=== PATIENT | female | born 1965 | race Caucasian/White ===

== ENCOUNTER → 2016-08-13 | Outpatient (CLI) | payer OTHER | LOC: HEART 5 08:44 | DX: R06.00 Dyspnea, unspecified (principal); R07.89 Other chest pain ==

== ENCOUNTER → 2016-08-16 | Outpatient (CLI) | payer OTHER | LOC: EMI 09:00 | DX: G35 Multiple sclerosis (principal) | CPT/HCPCS: 72156; A9577; J7050 ==

== ENCOUNTER → 2016-09-24 | Outpatient (CLI) | payer OTHER | LOC: KOH-I 10:55 | DX: R10.12 Left upper quadrant pain (principal); N20.0 Calculus of kidney | CPT/HCPCS: 74020 ==

== ENCOUNTER → 2020-05-16 | Outpatient (CLI) | payer OTHER | LOC: KOH-I 15:34 | DX: M25.551 Pain in right hip (principal); M16.11 Unilateral primary osteoarthritis, right hip | CPT/HCPCS: 73502 ==

== ENCOUNTER → 2020-06-14 | Outpatient (CLI) | payer OTHER | LOC: KOH-I 14:54 | DX: R31.9 Hematuria, unspecified (principal) | CPT/HCPCS: 74018 ==

== ENCOUNTER → 2020-07-25 | Outpatient (CLI) | payer OTHER | LOC: KOH-I 10:16 | DX: M54.2 Cervicalgia (principal) | CPT/HCPCS: 72040 ==

== ENCOUNTER → 2020-08-03 | Outpatient (CLI) | payer OTHER | LOC: EMI 12:53 | DX: M54.2 Cervicalgia (principal); M50.823 Other cervical disc disorders at C6-C7 level; M48.02 Spinal stenosis, cervical region | CPT/HCPCS: 72141 ==

== ENCOUNTER → 2020-11-07 | Outpatient (CLI) | payer OTHER | LOC: KOH-I 14:32 | DX: M51.36 Other intervertebral disc degeneration, lumbar region (principal); M79.671 Pain in right foot; M25.561 Pain in right knee; M47.816 Spondylosis without myelopathy or radiculopathy, lumbar region | CPT/HCPCS: 72100; 73562; 73620 ==

== ENCOUNTER → 2020-11-09 | Outpatient (CLI) | payer OTHER | LOC: EMI 08-15 14:30 | DX: M25.511 Pain in right shoulder (principal); M89.311 Hypertrophy of bone, right shoulder | CPT/HCPCS: 73221 ==

== ENCOUNTER → 2021-08-13 | Outpatient (CLI) | payer OTHER | LOC: KOH-I 14:59 | DX: M47.26 Other spondylosis with radiculopathy, lumbar region (principal) | CPT/HCPCS: 72100 ==

== ENCOUNTER → 2021-09-25 | Outpatient (CLI) | payer OTHER | LOC: KOH-I 09:56 | DX: M25.562 Pain in left knee (principal) | CPT/HCPCS: 73562 ==